=== PATIENT | female | born 1945 | race Caucasian/White ===

== ENCOUNTER 2016-05-12 14:25 | Emergency (ER) | payer OTHER, MEDICAID ==
[~2016-05-12] VITALS: Ht 167.6 cm; Wt 88.5 kg
[~2016-05-12 14:25] MED LIST: AMIT25TA9 PO; APIX5TAB PO; ASPI325T4 PO; BACL-63 PO; BEN10T PO; FURO40TA4 PO; GAB400C PO; HYDR500T13 PO; LEVO200T45 PO; MET25T PO; PANT40T PO; PAR20T PO; POTA10SO11 PO
[2016-05-12 15:42] VITALS: BP 148/75
[2016-05-12 17:15] LABS: Basophils # (auto) 0 uL; Basophils % (auto) 0.4 % (0.0-2.0); Eosinophils # (auto) 0.1 uL; Eosinophils % (auto) 1.2 % (0.0-7.0); Hematocrit 36.7 % (36.0-46.0); Hemoglobin 11.5 g/dL (12.2-16.2); Lymphocytes # (auto) 2.4 uL; Lymphocytes % (auto) 21.8 % (10.0-50.0); Mean Corpuscular Hemoglobin 27.1 pg (28.0-32.0); Mean Corpuscular Hgb Conc. 31.2 g/dL (32.0-36.0); Mean Corpuscular Volume 86.9 fL (80.0-100.0); Monocytes # (auto) 0.7 uL; Monocytes % (auto) 6.3 % (0.0-12.0); Neutrophils # (auto) 7.9 uL; Neutrophils % (auto) 70.3 % (37.0-80.0); Platelet Count (auto) 280 10^3/uL (140-450); Red Cell Distribution Width 15.8 % (11.6-16.0); SUSPECT VIEW TRANSMISSION; White Blood Cell 11.2 10^3/uL (4.4-10.8)
[2016-05-12 17:32] LABS: Albumin 3.1 g/dL (3.4-5.0); BUN/Creatinine Ratio 20.3; Calcium 8.5 mg/dL (8.5-10.1); Magnesium 1.9 mg/dL (1.6-2.6); Potassium 4.3 mmol/L (3.5-5.1)
[2016-05-12 17:35] LABS: Bilirubin, Total 0.3 mg/dL (0.2-1.0); Total Protein 6.5 g/dL (6.4-8.2)
== END 2016-05-12 22:24 | disposition left against medical advice (07) ==
LOC: ER 14:31
DX: R07.89 Other chest pain (principal); M54.9 Dorsalgia, unspecified; G89.29 Other chronic pain; Z88.0 Allergy status to penicillin; J44.9 Chronic obstructive pulmonary disease, unspecified; Z86.73 Personal history of transient ischemic attack (TIA), and cerebral infarction without residual deficits; E11.9 Type 2 diabetes mellitus without complications; I10 Essential (primary) hypertension; Z98.51 Tubal ligation status; Z90.49 Acquired absence of other specified parts of digestive tract; Z79.891 Long term (current) use of opiate analgesic; Z90.89 Acquired absence of other organs; Z53.21 Procedure and treatment not carried out due to patient leaving prior to being seen by health care provider
CPT/HCPCS: 36415; 71020; 80053; 83735; 84484; 85025; 93005

== ENCOUNTER 2016-05-16 09:44 | Emergency (ER) | payer OTHER, MEDICAID ==
[~2016-05-16] VITALS: Ht 167.6 cm; Wt 90.7 kg
[2016-05-16 10:02] VITALS: BP 173/86
== END 2016-05-16 13:14 | disposition home or self-care (01) ==
LOC: ER 09:44
DX: Z76.0 Encounter for issue of repeat prescription (principal); M54.5 Low back pain; G89.29 Other chronic pain; J44.9 Chronic obstructive pulmonary disease, unspecified; I10 Essential (primary) hypertension; F03.90 Unspecified dementia, unspecified severity, without behavioral disturbance, psychotic disturbance, mood disturbance, and anxiety; E11.9 Type 2 diabetes mellitus without complications; Z86.73 Personal history of transient ischemic attack (TIA), and cerebral infarction without residual deficits; Z86.711 Personal history of pulmonary embolism; Z88.0 Allergy status to penicillin; Z79.82 Long term (current) use of aspirin; Z79.01 Long term (current) use of anticoagulants

== ENCOUNTER 2018-09-02 13:49 | Emergency (ER) | payer OTHER, MEDICAID ==
[~2018-09-02] VITALS: Ht 165.1 cm; Wt 99.8 kg
[~2018-09-02 13:49] MED LIST changes: -LEVO200T45 PO; +LEVO200T7 PO
[2018-09-02 13:56] VITALS: BP 132/100
[2018-09-02 14:49] LABS: Albumin 3.3 g/dL (3.4-5.0); Anion Gap 6 (5-15); Blood Urea Nitrogen 10 mg/dL (7-18); Carbon Dioxide 29 mmol/L (21-32); Chloride 101 mmol/L (98-107); Glucose 84 mg/dL (74-106); Potassium 4.3 mmol/L (3.5-5.1); Sodium 136 mmol/L (136-145)
[2018-09-02 14:53] LABS: Alanine Aminotransferase 20 U/L (13-56); Alkaline Phosphatase 68 U/L (45-117); Aspartate Aminotransferase 11 U/L (15-37); BUN/Creatinine Ratio 12.5; Bilirubin, Total 0.4 mg/dL (0.2-1.0); GFR African American 91 mL/min; GFR Non-African American 75 mL/min; Total Protein 7.3 g/dL (6.4-8.2)
[2018-09-02 14:55] LABS: Basophils # (auto) 0 uL; Basophils % (auto) 0.3 % (0.0-2.0); Eosinophils # (auto) 0.1 uL; Eosinophils % (auto) 0.9 % (0.0-7.0); Hematocrit 39.1 % (36.0-46.0); Hemoglobin 12.3 g/dL (12.2-16.2); Lymphocytes # (auto) 2.6 uL; Lymphocytes % (auto) 18.2 % (10.0-50.0); Mean Corpuscular Hemoglobin 27.1 pg (28.0-32.0); Mean Corpuscular Hgb Conc. 31.4 g/dL (32.0-36.0); Mean Corpuscular Volume 86.5 fL (80.0-100.0); Monocytes # (auto) 0.9 uL; Monocytes % (auto) 6.6 % (0.0-12.0); Neutrophils # (auto) 10.4 uL; Platelet Count (auto) 301 10^3/uL (140-450); Red Blood Cells 4.52 10^6/uL (4.0-5.20); Red Cell Distribution Width 14.3 % (11.8-14.3)
== END 2018-09-02 20:18 | disposition left against medical advice (07) ==
LOC: ER 13:49 → EDBD 13:49 → ER 20:18
DX: E16.2 Hypoglycemia, unspecified (principal); Z53.21 Procedure and treatment not carried out due to patient leaving prior to being seen by health care provider
CPT/HCPCS: 36415; 80053; 84484; 85025

== ENCOUNTER 2019-03-21 10:59 | Inpatient (IN) | payer OTHER, MEDICAID ==
[~2019-03-21] VITALS: Ht 165.1 cm; Wt 102.9 kg
[2019-03-21 11:54] LABS: Basophils # (auto) 0 uL; Basophils % (auto) 0.3 % (0.0-2.0); Eosinophils # (auto) 0.3 uL; Eosinophils % (auto) 2.9 % (0.0-7.0); Hematocrit 35.4 % (36.0-46.0); Hemoglobin 11.3 g/dL (12.2-16.2); Lymphocytes # (auto) 2.2 uL; Lymphocytes % (auto) 18.8 % (10.0-50.0); Mean Corpuscular Hemoglobin 28.2 pg (28.0-32.0); Mean Corpuscular Hgb Conc. 31.8 g/dL (32.0-36.0); Mean Corpuscular Volume 88.6 fL (80.0-100.0); Monocytes # (auto) 0.7 uL; Monocytes % (auto) 5.9 % (0.0-12.0); Neutrophils # (auto) 8.6 uL; Neutrophils % (auto) 72.1 % (37.0-80.0); Platelet Count (auto) 277 10^3/uL (140-450); Red Cell Distribution Width 14.8 % (11.8-14.3); White Blood Cell 11.9 10^3/uL (4.4-10.8)
[2019-03-21 12:30] LABS: Alanine Aminotransferase 21 U/L (13-56); Albumin 3.2 g/dL (3.4-5.0); Anion Gap 4 (5-15); Blood Urea Nitrogen 7 mg/dL (7-18); Calcium 8.6 mg/dL (8.5-10.1); Carbon Dioxide 30 mmol/L (21-32); Chloride 104 mmol/L (98-107); Glucose 69 mg/dL (74-106); Magnesium 2.2 mg/dL (1.6-2.6); Potassium 4.3 mmol/L (3.5-5.1); Sodium 138 mmol/L (136-145)
[2019-03-21 12:35] LABS: Alkaline Phosphatase 66 U/L (45-117); Aspartate Aminotransferase 19 U/L (15-37); BUN/Creatinine Ratio 10.3; Bilirubin, Total 0.3 mg/dL (0.2-1.0); GFR African American 110 mL/min; GFR Non-African American 91 mL/min; Total Protein 6.7 g/dL (6.4-8.2)
[2019-03-21 13:39] LABS: Urine WBC None Seen /hpf (0 - 5)
[2019-03-21 13:48] LABS: Urine Bacteria NONE SEEN /hpf (None Seen); Urine Blood Negative /uL (Negative); Urine Specific Gravity 1.012 (1.001-1.035)
[2019-03-21] MEDS ORDERED: ONDANSETRON HCL 4 MG/2 ML VIAL IV PRN (15:15)
[2019-03-21] MEDS ORDERED: ACETAMINOPHEN 500 MG TAB PO PRN (15:15)
[2019-03-21] MEDS ORDERED: DEXTROSE (50%) 50ML SYRG IV PRN (15:15)
[2019-03-21] MEDS ORDERED: MORPHINE SULF INJ 2 MG/ML SYRINGE 1ML IV PRN (15:15)
[2019-03-21] MEDS ORDERED: hydrALAZINE HCL 20 MG/ML VL IV PRN (15:15)
[2019-03-21] MEDS ORDERED: NITROGLYCERIN 0.4 MG SL TAB SL PRN (15:15)
[2019-03-21 15:34] LABS: CRP High Sensitivity 0.65 mg/dL (< 0.3)
--- NOTE | 2019-03-21 16:05 | NUR ---
Patient arrived from ER SBAR received from MARILYN Tesfaye in ER. Patient is A & O x 4, with periods of forgetfullness, patient states "I have been having memory problems." Patient came in due to a fall and generalized weakness. Patient oriented to room, and to hospital as well as visiting hours. Patient states she does not have any family that will come and visit or call. She lives with [place] where she rents a room, who is her point of contact if she is to be discharged. Patient is comfortable at this time, no s/s of distress. POC discussed with patient, she agrees. Bed is in lowest, locked position, call light within reach, bed rails up x2, bed alarm on for safety precaution. Blood sugar 94, BP 153/78, HR 74, O2 96 (on 2L NC), RR 16, Pain 3 in lower back which she states is "tolerable." Patient is on Tele box 13, sinus rhythm at 64 BPM. Will continue to monitor Q1h and PRN.
--- NOTE | 2019-03-21 16:10 | NUR ---
Dr. Arenas at bedside. Dr. Arenas made aware of BP 153/78, HR 74 upon arrival, orders for Lisinopril received. Requesting Cardiolite Stress Test for patient tomorrow, NPO after midnight. Orders received, read back and verified. Will medicate per orders.
[2019-03-21] MEDS: InsuLIN REG 1unit/0.01ml Soln (100units/ml) SC SCH ×2 (16:27→22:58)
[2019-03-21] MEDS: ACCU-CHEK COMFORT CURVE STRIP VI SCH ×2 (16:27→22:47)
[2019-03-21] MEDS ORDERED: LISINOPRIL 10 MG TAB PO ONE (16:30)
--- NOTE | 2019-03-21 16:50 | NUR ---
hazardous materials waste technician at bedside.
[2019-03-21] MEDS ORDERED: QUET50TA PO (16:57)
[2019-03-21 17:00] VITALS: BP 153/78
[2019-03-21] MEDS ORDERED: ENAL2.5T PO (17:01)
[2019-03-21] MEDS ORDERED: INSLANTI SC (17:01)
[2019-03-21] MEDS ORDERED: TOLT2CAP7 PO (17:01)
[2019-03-21] MEDS ORDERED: SITA100T7 PO (17:01)
[2019-03-21] MEDS ORDERED: MAGN400T5 PO (17:01)
[2019-03-21] MEDS ORDERED: ATOR10TA52 PO (17:01)
[2019-03-21] MEDS: HYDROcodone-ACET 5/325MG TAB PO PRN (17:52)
--- NOTE | 2019-03-21 18:30 | NUR ---
POM medications taken to pharmacy. Band placed on patient, copy in chart.
--- NOTE | 2019-03-21 19:20 | NUR ---
Opening Shift Note Assumed care of patient, awake and alert. No S/S of distress/SOB. Patient reports /10 chronic back pain, but states that she can "wait for my [place]". Bed in lowest locked position, side rails up x2, call light within reach, bed alarm on. Instructed on POC and to call for assist PRN, will continue to monitor for changes Q1hr and PRN. Addendum: 03/22/19 at 0157 by GIO BRADEN RN RN ADDITION: Patient aware she will be NPO at midnight for Cardiolite stress test, verbalized understanding.
--- NOTE | 2019-03-21 20:00 | NUR ---
Regarding Depends Patient noted to be wearing Depends underwear. Patient made aware of hospital policy regarding such underwear, patient refusing to remove them. Patient educated on potential of skin breakdown due to wearing this type of underwear. Patient verbalized understanding, but continues to refuse stating that she "dribbles urine all the time. I get a rash if I don't wear this underwear, but I don't if I wear these." Patient allowed this RN to assess vaginal and rectal areas, no s/s of redness or skin breakdown noted. Patient alert and oriented. No s/s of distress. Will continue care. Charge nurse aware.
[2019-03-21 22:00] VITALS: BP 152/80
--- NOTE | 2019-03-21 22:00 | NUR ---
Hospitalist Paged Patient requesting continuation home mediations Baclofen, Magnesium, and Seroquel. Patient states that these medications "help [her] sleep." call center operations manager hospitalist paged, awaiting call back at this time.
--- NOTE | 2019-03-21 22:04 | NUR ---
Hospitalist Returned Page car deliverer hospitalist Compa D eLeon MD returned page at this time, new orders received to continue the home medications noted in the previous note as taken at home and ok to give a one time dose of Magnesium Oxide 400 mg PO. All orders red back and verified, will implement as ordered and continue care.
[2019-03-21] MEDS ORDERED: BACLOFEN 10 MG TAB PO ONE (22:15)
[2019-03-21] MEDS ORDERED: MAGNESIUM OXIDE 400 MG TAB PO ONE (22:15)
--- NOTE | 2019-03-21 22:30 | NUR ---
IV insertion Second IV required for ordered Cardiolite stress test in AM. IV access obtained, via clean sterile technique by inserting 20 gauge catheter to patient's right hand after two attempts. IV secured properly. No trauma to site. Patient tolerated well. 20 gauge to patients left AC noted to be patent, clean, dry, and intact. Will continue to monitor.
[2019-03-21] MEDS: ATORVASTATIN 20 MG TAB PO SCH (22:45)
[2019-03-21] MEDS: METOPROLOL TARTRATE 25 MG TAB PO SCH (22:46)
[2019-03-21] MEDS: GABAPENTIN 400 MG CAP PO SCH (22:47)
[2019-03-21] MEDS: DOCUSATE SOD 100 MG CAP PO SCH (22:47)
--- NOTE | 2019-03-22 04:45 | NUR ---
EKG EKG done as ordered, machine reading normal sinus rhythm. Patient tolerated well. Copy placed in hard chart. Will continue care.
[2019-03-22 05:00] VITALS: BP 159/89
[2019-03-22] MEDS: BACLOFEN 10 MG TAB PO SCH ×3 (06:06→21:58)
[2019-03-22] MEDS: GABAPENTIN 400 MG CAP PO SCH ×3 (06:06→21:59)
[2019-03-22] MEDS: ACCU-CHEK COMFORT CURVE STRIP VI SCH ×4 (06:06→21:20)
--- NOTE | 2019-03-22 06:15 | NUR ---
Hypertension Patient's blood pressure 159/89 with 73 heart rate. Patient reporting 10/10 back pain, reports that the pain "came on suddenly". Will medicate for pain as ordered and continue to monitor.
[2019-03-22] MEDS: InsuLIN REG 1unit/0.01ml Soln (100units/ml) SC SCH ×4 (06:18→22:00)
[2019-03-22] MEDS: HYDROcodone-ACET 5/325MG TAB PO PRN ×2 (06:20→17:45)
[2019-03-22 06:25] LABS: Basophils # (auto) 0 uL; Basophils % (auto) 0.3 % (0.0-2.0); Eosinophils # (auto) 0.4 uL; Eosinophils % (auto) 3.2 % (0.0-7.0); Hemoglobin 11.6 g/dL (12.2-16.2); Lymphocytes # (auto) 2.3 uL; Lymphocytes % (auto) 19.1 % (10.0-50.0); Mean Corpuscular Hemoglobin 28.4 pg (28.0-32.0); Mean Corpuscular Hgb Conc. 32.1 g/dL (32.0-36.0); Mean Corpuscular Volume 88.5 fL (80.0-100.0); Monocytes # (auto) 0.8 uL; Monocytes % (auto) 6.7 % (0.0-12.0); Neutrophils # (auto) 8.4 uL; Neutrophils % (auto) 70.7 % (37.0-80.0); Platelet Count (auto) 282 10^3/uL (140-450); Red Blood Cells 4.07 10^6/uL (4.0-5.20); Red Cell Distribution Width 14.8 % (11.8-14.3); White Blood Cell 11.9 10^3/uL (4.4-10.8)
[2019-03-22 06:41] LABS: Potassium 4.2 mmol/L (3.5-5.1)
[2019-03-22 06:45] LABS: BUN/Creatinine Ratio 13.9; Calcium 8.7 mg/dL (8.5-10.1)
[2019-03-22 06:49] LABS: INR 0.94 (0.9-1.15); Partial Thromboplastin Time 35.4 sec (23.64-32.05)
--- NOTE | 2019-03-22 07:20 | NUR ---
Closing Note Patient lying in bed, awake and alert. No s/s of distress. Bed in lowest locked position, side rails up x2, call light within reach, bed alarm on. Blood pressure rechecked after [place] administration, 154/93 with a 74 heart rate. Dayshift RN made aware and care endorsed.
[2019-03-22] MEDS ORDERED: ADENOSINE 90 MG in GIVE UN-DILUTED 0 ML IV STA (08:13)
[2019-03-22 09:00] VITALS: BP 162/76
[2019-03-22 09:42] VITALS: BP 146/73
--- NOTE | 2019-03-22 10:25 | NUR ---
RETURNED FROM STRESS TEST
[2019-03-22] MEDS: DOCUSATE SOD 100 MG CAP PO SCH ×2 (10:37→22:00)
[2019-03-22] MEDS: METOPROLOL TARTRATE 25 MG TAB PO SCH ×2 (10:38→21:59)
[2019-03-22] MEDS: FAMOTIDINE 20 MG TAB PO SCH (10:39)
[2019-03-22] MEDS: MAGNESIUM OXIDE 400 MG TAB PO SCH (10:39)
[2019-03-22] MEDS: LISINOPRIL 10 MG TAB PO SCH (10:40)
[2019-03-22] MEDS: INSULIN LANTUS (GLARGINE) 1 /0.01ml (100units/ml) SC SCH (10:40)
[2019-03-22] MEDS: ASPirin-EC 81 mg tab PO SCH (10:40)
--- NOTE | 2019-03-22 11:00 | NUR ---
DR. POP IN
[2019-03-22 13:00] VITALS: BP 145/81
--- NOTE | 2019-03-22 13:15 | NUR ---
ATE LUNCH. C/O SUDDEN ONSET RT LEG PAIN, SHARP AND SHOOTING UP TO HIP. AGREED TO AMBULATE
--- NOTE | 2019-03-22 13:40 | NUR ---
AMB WITH WALKER AROUND HALF OF UNIT. STATES SHE DOESNT WALK MUCH BECAUSE OF HER CHRONIC PAIN. AT END SHE SAID HER BACK AND HIPS HURT BUT WAS GLAD SHE WALKED. ENCOURAGED TO INCREASE ACTIVITY. SPO2 AFTER ACTIVITY 92%
[2019-03-22] MEDS ORDERED: BACLOFEN 10 MG TAB ONE (14:09)
--- NOTE | 2019-03-22 14:17 | NUR ---
ORDER RECEIVED PER DR POP FOR ROOM AIR ABG. PT ON ROOM AIR FOR AN HOUR, SPO2 REMAINS 89-90%. RN WALKED PATIENT AND PT SPO2 90%. DR POP AWARE. NEW ORDERS RECEIVED.
--- NOTE | 2019-03-22 16:28 | NUR ---
Discharge planning per consult, patient has orders for home health eval. [facility], obtained auth from [id number]. Addendum: 03/26/19 at 1506 by ELISE PAINTER Auth obtained from [facility] for [id number]. Spoke to Elise at [employer] and was advised that the 02 was delivered to patient's bedside at 7:33pm on 03.25.19.
[2019-03-22 17:00] VITALS: BP 148/71
--- NOTE | 2019-03-22 17:44 | NUR ---
STATES IS "PRETTY MISERABLE" 8/10 PAIN ALL OVER ESPECIALLY HIPS AND LEGS. MED WITH CARMEN
--- NOTE | 2019-03-22 19:30 | NUR ---
Opening Shift Note Assumed care of patient, awake and alert. No S/S of distress/SOB. Instructed on POC and to call for assist PRN, will continue to monitor for changes Q1hr and PRN.
--- NOTE | 2019-03-22 21:00 | NUR ---
Patient is wearing incontinence briefs and is refusing to remove them. Attempted to educate patient regarding risks of skin breakdown. Patient still refused to take them off. Will continue to monitor.
[2019-03-22] MEDS: ATORVASTATIN 20 MG TAB PO SCH (21:58)
[2019-03-22] MEDS: QUEtiapine FUMARATE 25 MG TAB PO SCH (21:59)
[2019-03-22 22:01] VITALS: BP 138/82
[2019-03-23 05:03] VITALS: BP 148/81
[2019-03-23] MEDS: HYDROcodone-ACET 5/325MG TAB PO PRN ×3 (05:16→20:38)
[2019-03-23] MEDS: ACCU-CHEK COMFORT CURVE STRIP VI SCH ×4 (06:21→22:54)
[2019-03-23] MEDS: GABAPENTIN 400 MG CAP PO SCH ×3 (06:22→22:51)
[2019-03-23] MEDS: BACLOFEN 10 MG TAB PO SCH ×3 (06:22→22:49)
[2019-03-23] MEDS: InsuLIN REG 1unit/0.01ml Soln (100units/ml) SC SCH ×4 (06:41→23:06)
[2019-03-23 07:00] LABS: Basophils # (auto) 0 uL; Basophils % (auto) 0.2 % (0.0-2.0); Eosinophils # (auto) 0.3 uL; Eosinophils % (auto) 2.7 % (0.0-7.0); Hematocrit 34.4 % (36.0-46.0); Hemoglobin 11.2 g/dL (12.2-16.2); Lymphocytes # (auto) 2.6 uL; Lymphocytes % (auto) 21.9 % (10.0-50.0); Mean Corpuscular Hgb Conc. 32.7 g/dL (32.0-36.0); Mean Corpuscular Volume 88.9 fL (80.0-100.0); Monocytes % (auto) 8.2 % (0.0-12.0); Neutrophils # (auto) 8.1 uL; Nucleated Red Blood Cells % 0.1 %; Platelet Count (auto) 262 10^3/uL (140-450); Red Blood Cells 3.87 10^6/uL (4.0-5.20); Red Cell Distribution Width 14.6 % (11.8-14.3)
[2019-03-23 07:01] LABS: BUN/Creatinine Ratio 19.1; Magnesium 2.1 mg/dL (1.6-2.6); Potassium 4.3 mmol/L (3.5-5.1)
--- NOTE | 2019-03-23 08:05 | NUR ---
OPENING SHIFT NOTE. ASSUMED CARE OF PT. PATIENT AWAKE AND ALERT. NO SOB OR SIGNS OF DISTRESS NOTED. INSTRUCTED ON POC AND TO CALL FOR HELP PRN. BED IN LOWEST POSITION WITH SIDE RAILS UP X2. WILL CONTINUE TO MONITOR.
[2019-03-23 09:00] VITALS: BP 133/59
[2019-03-23] MEDS: ASPirin-EC 81 mg tab PO SCH (10:00)
[2019-03-23] MEDS: DOCUSATE SOD 100 MG CAP PO SCH ×2 (10:01→22:48)
[2019-03-23] MEDS: METOPROLOL TARTRATE 25 MG TAB PO SCH ×2 (10:01→22:50)
[2019-03-23] MEDS: MAGNESIUM OXIDE 400 MG TAB PO SCH (10:01)
[2019-03-23] MEDS: FAMOTIDINE 20 MG TAB PO SCH (10:01)
[2019-03-23] MEDS: LISINOPRIL 10 MG TAB PO SCH (10:02)
[2019-03-23] MEDS: INSULIN LANTUS (GLARGINE) 1 /0.01ml (100units/ml) SC SCH (10:13)
[2019-03-23 13:00] VITALS: BP 132/72
--- NOTE | 2019-03-23 14:30 | NUR ---
O2 SAT AFTER AMBULATING WITH PT WAS 90-92%. RT DRAWING ABG SAMPLE.
--- NOTE | 2019-03-23 15:00 | NUR ---
ABG RESULTED. SHOWS PO2 AT [phone]. CALLED DR POP TO INFORM OF RESULT. AWAITING CALLBACK.
[2019-03-23 17:00] VITALS: BP 159/71
[2019-03-23 22:00] VITALS: BP 148/60
[2019-03-23] MEDS: ATORVASTATIN 20 MG TAB PO SCH (22:48)
[2019-03-23] MEDS: QUEtiapine FUMARATE 25 MG TAB PO SCH (22:49)
[2019-03-24 05:11] VITALS: BP 151/67
[2019-03-24] MEDS: GABAPENTIN 400 MG CAP PO SCH ×3 (06:12→22:18)
[2019-03-24] MEDS: BACLOFEN 10 MG TAB PO SCH ×3 (06:12→22:18)
[2019-03-24] MEDS: ACCU-CHEK COMFORT CURVE STRIP VI SCH ×3 (06:14→17:25)
[2019-03-24] MEDS: InsuLIN REG 1unit/0.01ml Soln (100units/ml) SC SCH ×3 (06:15→17:25)
[2019-03-24 07:32] LABS: Basophils # (auto) 0 uL; Basophils % (auto) 0.4 % (0.0-2.0); Eosinophils # (auto) 0.3 uL; Eosinophils % (auto) 2.4 % (0.0-7.0); Hematocrit 35.2 % (36.0-46.0); Hemoglobin 11.5 g/dL (12.2-16.2); Lymphocytes # (auto) 2.8 uL; Lymphocytes % (auto) 23.7 % (10.0-50.0); Mean Corpuscular Hemoglobin 28.8 pg (28.0-32.0); Mean Corpuscular Hgb Conc. 32.6 g/dL (32.0-36.0); Mean Corpuscular Volume 88.5 fL (80.0-100.0); Monocytes # (auto) 0.9 uL; Neutrophils # (auto) 7.7 uL; Neutrophils % (auto) 65.5 % (37.0-80.0); Platelet Count (auto) 278 10^3/uL (140-450); Red Blood Cells 3.98 10^6/uL (4.0-5.20); Red Cell Distribution Width 14.3 % (11.8-14.3); White Blood Cell 11.7 10^3/uL (4.4-10.8)
[2019-03-24 08:00] VITALS: BP 151/67
--- NOTE | 2019-03-24 08:00 | NUR ---
ASSESSMENT NOTE PT IS ALERT ORIENTED X4, RESTING IN BED COMFORTABLY, NO DISTRESS NOTED, VERY LARGE SOFT ABDOMEN NOTED, OXYGEN 2 L NC, ABLE TO SELF REPOSITION AND VERBALIS HER DEMANDS, PT IS HARD OF HEARING USE HEARING AIDE, PAIN 0/10, CALL LIGHT WITHIN REACH, CONTINUE ON FALL RISK PRECAUTIONS.
[2019-03-24 08:30] VITALS: BP 153/65
[2019-03-24] MEDS: MAGNESIUM OXIDE 400 MG TAB PO SCH (09:29)
[2019-03-24] MEDS: LISINOPRIL 10 MG TAB PO SCH (09:29)
[2019-03-24] MEDS: METOPROLOL TARTRATE 25 MG TAB PO SCH ×2 (09:29→22:20)
[2019-03-24] MEDS: ASPirin-EC 81 mg tab PO SCH (09:30)
[2019-03-24] MEDS: FAMOTIDINE 20 MG TAB PO SCH (09:30)
[2019-03-24] MEDS: DOCUSATE SOD 100 MG CAP PO SCH ×2 (09:31→22:18)
[2019-03-24] MEDS: HYDROcodone-ACET 5/325MG TAB PO PRN ×2 (09:36→18:14)
[2019-03-24] MEDS: INSULIN LANTUS (GLARGINE) 1 /0.01ml (100units/ml) SC SCH (09:37)
--- NOTE | 2019-03-24 11:00 | NUR ---
DR POP IS HERE FOLLOWING UP ON PT WITH NEW ORDERS
[2019-03-24] MEDS: MORPHINE SULF INJ 2 MG/ML SYRINGE 1ML IV PRN (11:27)
--- NOTE | 2019-03-24 11:30 | NUR ---
PT IS SITTING ON CHAIR AT BED SIDE
[2019-03-24 12:39] VITALS: BP 127/76
--- NOTE | 2019-03-24 14:21 | NUR ---
Nutrition Assessment Notes please see attached link for complete assessment Est. Needs ABW 80 [id number] kcal (20-23 kcal/kgBW), 80-88 gms pro (1.0-1.1 gms/kgBW). Will continue to monitor pertinent labs and reassess nutrient need prn Addendum: 03/24/19 at [address] Amended: Links added.
[2019-03-24 17:00] VITALS: BP 131/84
--- NOTE | 2019-03-24 18:30 | NUR ---
PT IS SITTING UP EATING DINNER, NO DISTRESS NOTED, CONTINUE MONITORING
--- NOTE | 2019-03-24 19:38 | NUR ---
RECEIVED PT FROM DAY RN POC REVIEWED
[2019-03-24 22:00] VITALS: BP 141/57
[2019-03-24] MEDS: QUEtiapine FUMARATE 25 MG TAB PO SCH (22:17)
[2019-03-24] MEDS: ATORVASTATIN 20 MG TAB PO SCH (22:18)
[2019-03-25] MEDS: HYDROcodone-ACET 5/325MG TAB PO PRN ×3 (00:03→20:32)
[2019-03-25] MEDS: ACCU-CHEK COMFORT CURVE STRIP VI SCH ×5 (00:26→21:42)
[2019-03-25] MEDS: InsuLIN REG 1unit/0.01ml Soln (100units/ml) SC SCH ×5 (00:26→21:42)
[2019-03-25] MEDS: MORPHINE SULF INJ 2 MG/ML SYRINGE 1ML IV PRN (01:25)
[2019-03-25 04:55] VITALS: BP 143/57
[2019-03-25] MEDS: GABAPENTIN 400 MG CAP PO SCH ×3 (05:10→21:30)
[2019-03-25] MEDS: BACLOFEN 10 MG TAB PO SCH ×3 (05:13→21:33)
[2019-03-25 08:00] VITALS: BP 157/81
--- NOTE | 2019-03-25 08:00 | NUR ---
ASSESSMENT NOTE PT IS ALERT ORIENTED X4, RESTING IN LOW RODRÍGUEZ POSITION, SLEEPING, NOTICE THAT PT IS APNEIC, DUE TO THE WAY LEANING TO HER SIDE, SHOOK PT UP, WAKE AFTER 8 SECONDS, NO SHORTNESS OF BREATH NOTED, PAIN 0/10 AT THIS TIME, CALL LIGHT WITHIN REACH
[2019-03-25 09:00] VITALS: BP 114/57
[2019-03-25] MEDS: FAMOTIDINE 20 MG TAB PO SCH (09:29)
[2019-03-25] MEDS: MAGNESIUM OXIDE 400 MG TAB PO SCH (09:29)
[2019-03-25] MEDS: ASPirin-EC 81 mg tab PO SCH (09:29)
[2019-03-25] MEDS: LISINOPRIL 10 MG TAB PO SCH (09:30)
[2019-03-25] MEDS: INSULIN LANTUS (GLARGINE) 1 /0.01ml (100units/ml) SC SCH (09:31)
[2019-03-25] MEDS: METOPROLOL TARTRATE 25 MG TAB PO SCH ×2 (10:00→21:34)
[2019-03-25] MEDS: DOCUSATE SOD 100 MG CAP PO SCH ×2 (10:00→21:31)
--- NOTE | 2019-03-25 10:35 | NUR ---
DR POP IS HERE FOLLOWING UP ON PT
--- NOTE | 2019-03-25 10:36 | NUR ---
DR POP MADE AWARE THAT POSSIBLY HAVE A SLEEP APNEA
[2019-03-25 13:00] VITALS: BP 125/79
--- NOTE | 2019-03-25 15:37 | NUR ---
assessment Patient is a 73 year old female who is alert and oriented. Patients cognitive abilities are intact. Prior to admission patient lived home with a friend Joana Shultz [phone] and functioned with assistance. Per patient she will return home to her prior living arrangements post discharge and family will transport her home. Patient informed me she has a SS caregiver. Patient informed me she has a fww for home use. Patient feels safe returning home on discharge. Patient has an order for home 02 and home health that has been satisfied by [facility]. I informed patient she has a right to speak to a social psychologist regarding all care. I informed patient she has a right to participate in any and all discharge planning. Patient does not have a POA and advanced directive. I have offered patient information on POA and advanced directives. I informed the patient the advantages and benefits of having an Advanced Directive. Patient verbalized understanding and agreed to discharge plan. Addendum: 03/25/19 at 1540 by Michelle THOMAS Amended: Links added.
[2019-03-25 17:00] VITALS: BP 161/95
--- NOTE | 2019-03-25 18:40 | NUR ---
PT CONTINUE STABLE, VERBALIZ UNDERSTANDING FOR LEFT CATH CATH TOMORROW , NO DISTRESS NOTED, CONTINUE CARE
[2019-03-25] MEDS: ATORVASTATIN 20 MG TAB PO SCH (21:31)
[2019-03-25] MEDS: QUEtiapine FUMARATE 25 MG TAB PO SCH (21:33)
[2019-03-25 22:00] VITALS: BP 140/72
[2019-03-26 05:00] VITALS: BP 108/62
[2019-03-26] MEDS: InsuLIN REG 1unit/0.01ml Soln (100units/ml) SC SCH ×4 (05:41→22:02)
[2019-03-26] MEDS: GABAPENTIN 400 MG CAP PO SCH ×3 (05:42→21:45)
[2019-03-26] MEDS: ACCU-CHEK COMFORT CURVE STRIP VI SCH ×4 (05:42→22:02)
[2019-03-26] MEDS: BACLOFEN 10 MG TAB PO SCH ×3 (05:42→21:46)
[2019-03-26] MEDS: HYDROcodone-ACET 5/325MG TAB PO PRN ×2 (05:43→17:27)
[2019-03-26 07:25] LABS: Basophils # (auto) 0 uL; Basophils % (auto) 0.4 % (0.0-2.0); Eosinophils # (auto) 0.2 uL; Eosinophils % (auto) 2.1 % (0.0-7.0); Hematocrit 37.3 % (36.0-46.0); Lymphocytes # (auto) 2.5 uL; Lymphocytes % (auto) 22.1 % (10.0-50.0); Mean Corpuscular Hemoglobin 28.7 pg (28.0-32.0); Mean Corpuscular Hgb Conc. 32.2 g/dL (32.0-36.0); Monocytes # (auto) 0.8 uL; Monocytes % (auto) 6.7 % (0.0-12.0); Neutrophils # (auto) 7.9 uL; Neutrophils % (auto) 68.7 % (37.0-80.0); Platelet Count (auto) 277 10^3/uL (140-450); Red Blood Cells 4.18 10^6/uL (4.0-5.20); Red Cell Distribution Width 14.8 % (11.8-14.3); White Blood Cell 11.5 10^3/uL (4.4-10.8)
[2019-03-26 07:29] LABS: INR 0.96 (0.9-1.15)
[2019-03-26 07:35] LABS: Potassium 4.3 mmol/L (3.5-5.1)
[2019-03-26 07:40] LABS: BUN/Creatinine Ratio 15.3; Calcium 9.2 mg/dL (8.5-10.1)
--- NOTE | 2019-03-26 07:45 | NUR ---
FUNERAL HOME GENERAL MANAGER CALLED AND READY FOR PATIENT.
--- NOTE | 2019-03-26 07:50 | NUR ---
PATIENT ROUNDS PATIENT LYING IN BED, NO DISTRESS NOTED, RR EQUAL AND NONLABORED. BED IN LOWEST POSITION ,SIDE RAILS UP X2, CALL LIGHT WITHIN REACH WILL CONTINUE TO MONITOR. PATIENT NPO FOR PROCEDURE.
[2019-03-26 08:00] VITALS: BP 108/46
--- NOTE | 2019-03-26 08:05 | NUR ---
PATIENT OFF UNIT FOR PROCEDURE
[2019-03-26] MEDS ORDERED: LIDOCAINE 2%HCL (LOCAL ANESTH.) INJ 20ML MDV ONE (08:27)
[2019-03-26] MEDS ORDERED: IOHEXOL 350 MG/ML 100ML IJ ONE (08:27)
[2019-03-26] MEDS ORDERED: ANGIOMAX 250 MG VIAL IV ONE ×2 (09:50→10:49)
[2019-03-26] MEDS ORDERED: SODIUM CHL 0.9% 50 ML ONE ×2 (09:51→10:49)
[2019-03-26] MEDS ORDERED: fentaNYL CITRATE 100 MCG/2 ML VL ONE (09:51)
[2019-03-26] MEDS ORDERED: MIDAZOLAM HCL 1MG/1ML-2 ML VIAL ONE (09:51)
--- NOTE | 2019-03-26 09:51 | NUR ---
PT IN PROCEDURE, NPO FOR BREAKFAST
[2019-03-26] MEDS ORDERED: HEPARIN SODIUM (PORCINE) 5000 UNITS/ML 1ML VIAL ONE (09:56)
[2019-03-26] MEDS ORDERED: VERAPAMIL 2.5MG/ML INJ 2ML VIAL IV ONE (09:56)
[2019-03-26] MEDS: INSULIN LANTUS (GLARGINE) 1 /0.01ml (100units/ml) SC SCH (10:00)
[2019-03-26] MEDS: METOPROLOL TARTRATE 25 MG TAB PO SCH ×2 (10:00→21:48)
[2019-03-26] MEDS: MAGNESIUM OXIDE 400 MG TAB PO SCH (10:00)
[2019-03-26] MEDS: ASPirin-EC 81 mg tab PO SCH (10:00)
[2019-03-26] MEDS: FAMOTIDINE 20 MG TAB PO SCH (10:00)
[2019-03-26] MEDS: LISINOPRIL 10 MG TAB PO SCH (10:00)
[2019-03-26] MEDS: DOCUSATE SOD 100 MG CAP PO SCH ×2 (10:00→21:48)
[2019-03-26] MEDS ORDERED: PHENYLEPHRINE HCL 10 MG/ML VL ONE (10:11)
[2019-03-26] MEDS ORDERED: CLOPIDOGREL 300 MG TAB ONE (10:52)
[2019-03-26] MEDS ORDERED: ASPirin 81 mg TAB ONE (10:53)
[2019-03-26 13:00] VITALS: BP 147/62
--- NOTE | 2019-03-26 13:15 | NUR ---
PATIENT BACK ON UNIT PATIENT LYING IN BED, NO DISTRESS NOTED, PATIENT PLACED ON 2L O2, VASC BAND TO RIGHT WRIST-2CC AIR REMOVED, SITE BENIGN. WILL CONTINUE TO MONITOR AND INITIATE POC. BED IN LOWEST POSITION, SIDE RAILS UP X2, CALL LIGHT WITHIN REACH.
--- NOTE | 2019-03-26 14:21 | NUR ---
VASCBAND VASCBAND REMOVED-DRESSING PLACED, SITE BENIGN, NO BLEEDING. PATIENT EDUCATED ON MONITORING FOR BLEEDING.
[2019-03-26 17:00] VITALS: BP 145/79
--- NOTE | 2019-03-26 19:25 | NUR ---
Opening Shift Note Assumed care of patient, awake and alert. No S/S of distress/SOB or pain. Family at the bedside. Instructed on POC and to call for assist PRN, will continue to monitor for changes Q1hr and PRN.
[2019-03-26] MEDS: QUEtiapine FUMARATE 25 MG TAB PO SCH (21:46)
[2019-03-26] MEDS: ATORVASTATIN 20 MG TAB PO SCH (21:46)
[2019-03-26] MEDS: MORPHINE SULF INJ 2 MG/ML SYRINGE 1ML IV PRN (21:48)
[2019-03-26 22:50] VITALS: BP 156/72
[2019-03-27 05:31] VITALS: BP 120/60
[2019-03-27] MEDS: GABAPENTIN 400 MG CAP PO SCH ×3 (05:55→22:27)
[2019-03-27] MEDS: BACLOFEN 10 MG TAB PO SCH ×3 (05:55→22:27)
[2019-03-27] MEDS: ACCU-CHEK COMFORT CURVE STRIP VI SCH ×4 (06:36→22:28)
[2019-03-27] MEDS: InsuLIN REG 1unit/0.01ml Soln (100units/ml) SC SCH ×4 (06:40→22:28)
[2019-03-27 07:19] LABS: Basophils # (auto) 0 uL; Basophils % (auto) 0.3 % (0.0-2.0); Eosinophils # (auto) 0.2 uL; Eosinophils % (auto) 1.3 % (0.0-7.0); Hematocrit 34.7 % (36.0-46.0); Hemoglobin 11.2 g/dL (12.2-16.2); Lymphocytes # (auto) 2.3 uL; Mean Corpuscular Hemoglobin 28.3 pg (28.0-32.0); Mean Corpuscular Hgb Conc. 32.2 g/dL (32.0-36.0); Mean Corpuscular Volume 87.9 fL (80.0-100.0); Monocytes % (auto) 7.6 % (0.0-12.0); Neutrophils # (auto) 9.3 uL; Neutrophils % (auto) 72.8 % (37.0-80.0); Platelet Count (auto) 275 10^3/uL (140-450); Red Blood Cells 3.95 10^6/uL (4.0-5.20); Red Cell Distribution Width 14.9 % (11.8-14.3); White Blood Cell 12.8 10^3/uL (4.4-10.8)
[2019-03-27 07:38] LABS: Calcium 8.7 mg/dL (8.5-10.1); Magnesium 2.3 mg/dL (1.6-2.6); Potassium 4.9 mmol/L (3.5-5.1)
[2019-03-27 07:40] LABS: BUN/Creatinine Ratio 16.8
--- NOTE | 2019-03-27 07:41 | NUR ---
OPENING NOTE Assumed care of patient from [facility] RN, Jenny. Patient resting in bed with eyes closed, even rise and fall of chest noted. No S/S of distress/SOB or pain. Nasal cannula in place, connected to 2L O2. Bed in lowest, locked position with side rails up x2. Fall precautions in place and call light within reach. Will continue to monitor for changes Q1hr and PRN.
[2019-03-27 09:45] VITALS: BP 89/45
--- NOTE | 2019-03-27 09:45 | NUR ---
IV CHANGE Patient refused IV change. Educated patient that IV's should be changed every 3 days, continues to refuse. IV flushes well, no S/S of pain/redness or infiltration.
[2019-03-27] MEDS: DOCUSATE SOD 100 MG CAP PO SCH ×2 (10:40→22:27)
[2019-03-27] MEDS: ASPirin-EC 81 mg tab PO SCH (10:40)
[2019-03-27] MEDS: LISINOPRIL 10 MG TAB PO SCH (10:41)
[2019-03-27] MEDS: METOPROLOL TARTRATE 25 MG TAB PO SCH ×2 (10:41→22:00)
[2019-03-27] MEDS: CLOPIDOGREL BISULFATE 75 MG TAB PO SCH (10:42)
[2019-03-27] MEDS: FAMOTIDINE 20 MG TAB PO SCH (10:43)
[2019-03-27] MEDS: INSULIN LANTUS (GLARGINE) 1 /0.01ml (100units/ml) SC SCH (10:44)
[2019-03-27] MEDS: MAGNESIUM OXIDE 400 MG TAB PO SCH (10:44)
[2019-03-27 13:00] VITALS: BP 125/74
--- NOTE | 2019-03-27 15:03 | NUR ---
Pt was able to complete sit to stand x 10 reps using FWW for balance and stability with modA. Pt did experience tremors during her sit to stand exercises and noted for bilat knees to collapse causing for patient to lose control to bilat LE's and causing for her to sit down at the edge of the bed. Addendum: 03/27/19 at 1505 by Katty Horner PT Amended: Links added.
[2019-03-27] MEDS: MORPHINE SULF INJ 2 MG/ML SYRINGE 1ML IV PRN (15:05)
[2019-03-27] MEDS: HYDROcodone-ACET 5/325MG TAB PO PRN (15:06)
--- NOTE | 2019-03-27 15:19 | NUR ---
Nutrition Follow-up Notes Wt.: 106.6 kg as of yesterday Pt's on oxygen via nasal cannula, asleep, no immediate family member at bedside during rounds this morning. Pt's s/p LHC yesterday, no signs of distress noted earlier, currently on 2 gms Na diet with adequate PO intake aeb 80% ave. consumed meals (x6) in last 2.5 days. Noted pt's for active Neurology consult. Est. Needs ABW 80 [id number] kcal (20-23 kcal/kgBW), 80-88 gms pro (1.0-1.1 gms/kgBW). Will continue to monitor pertinent labs and reassess nutrient need prn Labs: Gluc 228 H, Na 128 L, Cl 94 L, BUN 20 H, Cr 1.19 H, HbA1c 7.4 H, Alb 3.2 L. Skin: Izaiah scale 16, mod risk, skin intact per sample washer. GI: Pt had 1 BM this morning per sample washer. PES: Altered nutrition related lab values r/t current/chronic medical condition aeb hyperglycemia, elev A1C mild hypoalb Obesity r/t food intake more than body requirement aeb 188% IBW, BMI 39.1 kg/m2 and increased body adiposity Will continue to monitor PO intake, skin status, pertinent labs and weight trend. F/u in 3 to 5 days. Rec.: 1.) Consider Consistent Standard Carb: 60 gms/meal,Cardiac: 2 gms Na, Low Chol, Low Fat diet. 2.) If Albumin continues trending down witb improved renal labs, consider Prostat 1 pkt BID. 3.) Continue close supervision during meals. 4.) Refer pt to CDE/RD for further nutrition education and weight monitoring upon discharge. 5.) Continue current plan of care.
[2019-03-27 17:16] VITALS: BP 133/57
--- NOTE | 2019-03-27 19:15 | NUR ---
Opening Shift Note Assumed care of patient, awake and alert. No S/S of distress/SOB or pain. Safety measures in place bed in lowest position, side railsx2 up, and call light within reach. Instructed on POC and to call for assist PRN, will continue to monitor for changes Q1hr and PRN.
[2019-03-27 22:00] VITALS: BP 128/51
--- NOTE | 2019-03-27 22:00 | NUR ---
IV Change Educated patient that IV's should be changed every 3 days, patient stated "It still works". Patient refused IV change. IV flushes well, no S/S of pain/redness or infiltration.
[2019-03-27] MEDS: QUEtiapine FUMARATE 25 MG TAB PO SCH (22:27)
[2019-03-27] MEDS: ATORVASTATIN 20 MG TAB PO SCH (22:27)
[2019-03-28 05:57] VITALS: BP 111/43
[2019-03-28 06:01] LABS: Basophils # (auto) 0.1 uL; Basophils % (auto) 0.5 % (0.0-2.0); Eosinophils # (auto) 0.3 uL; Hematocrit 33.8 % (36.0-46.0); Hemoglobin 10.7 g/dL (12.2-16.2); Lymphocytes # (auto) 3.9 uL; Mean Corpuscular Hemoglobin 28.6 pg (28.0-32.0); Mean Corpuscular Hgb Conc. 31.8 g/dL (32.0-36.0); Mean Corpuscular Volume 89.9 fL (80.0-100.0); Monocytes # (auto) 1.2 uL; Monocytes % (auto) 8.4 % (0.0-12.0); Neutrophils # (auto) 8.4 uL; Neutrophils % (auto) 61.1 % (37.0-80.0); Nucleated Red Blood Cells % 0.1 %; Platelet Count (auto) 249 10^3/uL (140-450); Red Blood Cells 3.75 10^6/uL (4.0-5.20); Red Cell Distribution Width 15.1 % (11.8-14.3); White Blood Cell 13.8 10^3/uL (4.4-10.8)
[2019-03-28 06:19] LABS: Calcium 8.6 mg/dL (8.5-10.1); Potassium 4.8 mmol/L (3.5-5.1)
[2019-03-28 06:24] LABS: BUN/Creatinine Ratio 17.9
[2019-03-28] MEDS: GABAPENTIN 400 MG CAP PO SCH ×3 (06:28→22:32)
[2019-03-28] MEDS: BACLOFEN 10 MG TAB PO SCH ×4 (06:28→22:33)
[2019-03-28] MEDS: ACCU-CHEK COMFORT CURVE STRIP VI SCH ×4 (06:36→22:30)
[2019-03-28] MEDS: InsuLIN REG 1unit/0.01ml Soln (100units/ml) SC SCH ×4 (06:36→22:30)
[2019-03-28] MEDS: LEVOTHYROXINE SODIUM 100 MCG TAB PO SCH (06:36)
--- NOTE | 2019-03-28 07:28 | NUR ---
OPENING NOTE Assumed care of patient from [facility] RN, Jenny. Patient resting in bed with eyes closed, even rise and fall of chest noted. No S/S of distress/SOB or pain. Nasal cannula in place, connected to 2L O2. Bed in lowest, locked position with side rails up x2. Fall precautions in place and call light within reach. Will continue to monitor for changes Q1hr and PRN.
[2019-03-28 09:00] VITALS: BP 104/40
--- NOTE | 2019-03-28 09:10 | NUR ---
IV CHANGE Patient refused IV change. Educated patient that IV's should be changed every 3 days, patient states "but it still works". IV flushes well, no S/S of pain/redness or infiltration.
[2019-03-28] MEDS: MAGNESIUM OXIDE 400 MG TAB PO SCH (10:36)
[2019-03-28] MEDS: DOCUSATE SOD 100 MG CAP PO SCH ×2 (10:36→22:31)
[2019-03-28] MEDS: METOPROLOL TARTRATE 25 MG TAB PO SCH ×2 (10:36→22:30)
[2019-03-28] MEDS: ASPirin-EC 81 mg tab PO SCH (10:36)
[2019-03-28] MEDS: LISINOPRIL 10 MG TAB PO SCH (10:37)
[2019-03-28] MEDS: INSULIN LANTUS (GLARGINE) 1 /0.01ml (100units/ml) SC SCH (10:37)
[2019-03-28] MEDS: CLOPIDOGREL BISULFATE 75 MG TAB PO SCH (10:37)
[2019-03-28] MEDS: FAMOTIDINE 20 MG TAB PO SCH (10:37)
[2019-03-28 13:00] VITALS: BP 138/77
--- NOTE | 2019-03-28 14:50 | NUR ---
Mares catheter insertion Patient assessed and determined to be in need of Mares catheter, order obtained from MD. Patient educated on catheter and reason for insertion, all questions answered. Mares catheter 16 gauge chinese inserted with clean sterile technique. Patient tolerated well.
--- NOTE | 2019-03-28 15:03 | NUR ---
URINE Urine specimen collected and sent to lab via bullet.
[2019-03-28] MEDS: HYDROcodone-ACET 5/325MG TAB PO PRN (15:37)
[2019-03-28 16:01] LABS: Urine Bacteria NONE SEEN /hpf (None Seen); Urine Blood Negative /uL (Negative); Urine Specific Gravity 1.013 (1.001-1.035); Urine WBC 2 /hpf (0 - 5)
[2019-03-28 17:00] VITALS: BP 142/64
--- NOTE | 2019-03-28 19:15 | NUR ---
Opening Shift Note Assumed care of patient, awake and alert. No S/S of distress/SOB or pain. Safety measures in place bed in lowest position, side rails x2 up, and call light within reach. Instructed on POC and to call for assist PRN, will continue to monitor for changes Q1hr and PRN.
[2019-03-28] MEDS: MORPHINE SULF INJ 2 MG/ML SYRINGE 1ML IV PRN (20:57)
--- NOTE | 2019-03-28 21:00 | NUR ---
IV Change Educated patient that IV's should be changed every 3 days patient refused IV change. IV flushes well, no S/S of pain/redness or infiltration.
[2019-03-28 22:00] VITALS: BP 125/59
[2019-03-28] MEDS: ATORVASTATIN 20 MG TAB PO SCH (22:32)
[2019-03-28] MEDS: QUEtiapine FUMARATE 25 MG TAB PO SCH (22:33)
[2019-03-29 05:55] VITALS: BP 125/84
[2019-03-29 06:19] LABS: Basophils # (auto) 0.1 uL; Basophils % (auto) 0.6 % (0.0-2.0); Eosinophils # (auto) 0.3 uL; Eosinophils % (auto) 2.6 % (0.0-7.0); Hematocrit 34.4 % (36.0-46.0); Lymphocytes # (auto) 2.6 uL; Lymphocytes % (auto) 22.1 % (10.0-50.0); Mean Corpuscular Hemoglobin 28.2 pg (28.0-32.0); Mean Corpuscular Hgb Conc. 31.9 g/dL (32.0-36.0); Mean Corpuscular Volume 88.2 fL (80.0-100.0); Monocytes % (auto) 8.2 % (0.0-12.0); Neutrophils # (auto) 7.9 uL; Neutrophils % (auto) 66.5 % (37.0-80.0); Platelet Count (auto) 230 10^3/uL (140-450); Red Cell Distribution Width 14.7 % (11.8-14.3); White Blood Cell 11.9 10^3/uL (4.4-10.8)
[2019-03-29 06:28] LABS: Calcium 8.7 mg/dL (8.5-10.1); Potassium 4.6 mmol/L (3.5-5.1)
[2019-03-29 06:30] LABS: BUN/Creatinine Ratio 16.3
[2019-03-29] MEDS: LEVOTHYROXINE SODIUM 100 MCG TAB PO SCH (06:34)
[2019-03-29] MEDS: BACLOFEN 10 MG TAB PO SCH ×3 (06:34→22:34)
[2019-03-29] MEDS: GABAPENTIN 400 MG CAP PO SCH ×3 (06:34→22:35)
[2019-03-29] MEDS: ACCU-CHEK COMFORT CURVE STRIP VI SCH ×4 (06:35→22:36)
[2019-03-29] MEDS: InsuLIN REG 1unit/0.01ml Soln (100units/ml) SC SCH ×4 (06:35→22:35)
[2019-03-29] MEDS: HYDROcodone-ACET 5/325MG TAB PO PRN ×3 (07:39→22:36)
[2019-03-29 09:00] VITALS: BP 107/46
[2019-03-29] MEDS: LISINOPRIL 10 MG TAB PO SCH (10:00)
[2019-03-29] MEDS: METOPROLOL TARTRATE 25 MG TAB PO SCH ×2 (10:00→22:35)
--- NOTE | 2019-03-29 10:00 | NUR ---
Patient unable to receive 1000 medication. Patient undergoing EEG. Will continue to monitor and administer medication when procedure is over.
[2019-03-29 10:11] LABS: Folate (Folic Acid) 10.42 ng/mL (5.38-24)
--- NOTE | 2019-03-29 10:40 | NUR ---
Dr. Garcia at the bedside. Discussed SNF options with the patient. Will place social service consult.
--- NOTE | 2019-03-29 10:55 | NUR ---
EEG COMPLETED AT BEDSIDE. MARILYN BUNCH.
[2019-03-29] MEDS: CLOPIDOGREL BISULFATE 75 MG TAB PO SCH (11:19)
[2019-03-29] MEDS: MAGNESIUM OXIDE 400 MG TAB PO SCH (11:19)
[2019-03-29] MEDS: FAMOTIDINE 20 MG TAB PO SCH (11:19)
[2019-03-29] MEDS: ASPirin-EC 81 mg tab PO SCH (11:19)
[2019-03-29] MEDS: DOCUSATE SOD 100 MG CAP PO SCH ×2 (11:20→22:30)
[2019-03-29] MEDS: INSULIN LANTUS (GLARGINE) 1 /0.01ml (100units/ml) SC SCH (11:20)
[2019-03-29] MEDS ORDERED: BACL10TA PO (12:07)
[2019-03-29] MEDS ORDERED: FAM20T PO (12:07)
[2019-03-29] MEDS ORDERED: ATOR20TA50 PO (12:07)
[2019-03-29] MEDS ORDERED: CLOP75TA28 PO (12:07)
[2019-03-29] MEDS ORDERED: LISI10TA6 PO (12:07)
[2019-03-29 13:00] VITALS: BP 119/48
--- NOTE | 2019-03-29 14:36 | NUR ---
Discharge planning per SS consult, patient has orders for a hospice consult. Michelle Finch seen family for initial; asked me to provide information for hospice vendors to choose from. Vendor list was provided to family.
[2019-03-29] MEDS: APIXABAN 5 MG TAB PO SCH ×2 (15:08→22:34)
[2019-03-29] MEDS: PARoxetine 20 MG TAB PO SCH (15:08)
--- NOTE | 2019-03-29 15:30 | NUR ---
Opening Shift Note: A&Ox4, with periods of mild confusion. Currently on 2LO2 via NC; new order for O2 at home, oxygen is at bedside, pain level 4/10 generalized, and at baseline uses a walker; currently bedrest/working on standing with PT. Bed locked in lowest position, side rails up x2, call light within reach, and bed alarm on for patient safety. IV 22 g left AC IID inserted on 03/21/19. Patient refusing to switch IV locations per protocol. Mares inserted on 03/18/19 for prolonged immobilization. Skin intact. POC discussed and questions answered. Pending SNF transfer per discharge order; social service awaiting authorization from an accepting facility. Will continue to round and reposition prn.
[2019-03-29 17:00] VITALS: BP 138/54
--- NOTE | 2019-03-29 17:14 | NUR ---
Discharge planning per ASS consult, patient has orders to SNF. Referral sent to [facility] and [facility], no female beds at this time. Sent to [facility], acceptance is pending. No Admissions available when I placed a follow up call. [facility] may have a bed on 03.30.19.
[2019-03-29 22:00] VITALS: BP 121/62
[2019-03-29] MEDS: TOLTERODINE TARTRATE 1 MG TAB PO SCH (22:33)
[2019-03-29] MEDS: ATORVASTATIN 20 MG TAB PO SCH (22:34)
[2019-03-29] MEDS: QUEtiapine FUMARATE 25 MG TAB PO SCH (22:35)
[2019-03-30 05:59] VITALS: BP 122/65
[2019-03-30] MEDS: BACLOFEN 10 MG TAB PO SCH ×2 (06:24→14:11)
[2019-03-30] MEDS: GABAPENTIN 400 MG CAP PO SCH ×3 (06:24→14:11)
[2019-03-30] MEDS: LEVOTHYROXINE SODIUM 100 MCG TAB PO SCH (06:24)
[2019-03-30] MEDS: InsuLIN REG 1unit/0.01ml Soln (100units/ml) SC SCH ×3 (06:24→17:32)
[2019-03-30] MEDS: ACCU-CHEK COMFORT CURVE STRIP VI SCH ×3 (06:25→17:00)
[2019-03-30] MEDS: HYDROcodone-ACET 5/325MG TAB PO PRN ×2 (06:25→14:11)
[2019-03-30 08:00] VITALS: BP 111/51
[2019-03-30] MEDS: DOCUSATE SOD 100 MG CAP PO SCH (09:39)
[2019-03-30] MEDS: ASPirin-EC 81 mg tab PO SCH (09:40)
[2019-03-30] MEDS: APIXABAN 5 MG TAB PO SCH (09:41)
[2019-03-30] MEDS: METOPROLOL TARTRATE 25 MG TAB PO SCH (09:42)
[2019-03-30] MEDS: MAGNESIUM OXIDE 400 MG TAB PO SCH (09:43)
[2019-03-30] MEDS: FAMOTIDINE 20 MG TAB PO SCH (09:43)
[2019-03-30] MEDS: CLOPIDOGREL BISULFATE 75 MG TAB PO SCH (09:43)
[2019-03-30] MEDS: PARoxetine 20 MG TAB PO SCH (09:43)
[2019-03-30] MEDS: LISINOPRIL 10 MG TAB PO SCH (09:44)
[2019-03-30 10:00] VITALS: BP 111/51
[2019-03-30] MEDS ORDERED: INSULIN LANTUS (GLARGINE) 1 /0.01ml (100units/ml) SC SCH (10:00)
[2019-03-30] MEDS: TOLTERODINE TARTRATE 1 MG TAB PO SCH (10:32)
[2019-03-30] MEDS ORDERED: GABA-339 PO (11:28)
[2019-03-30 12:00] VITALS: BP 116/62
--- NOTE | 2019-03-30 16:38 | NUR ---
Discharge planning per consult, patient has orders to dc to SNF. Referral sent to [facility]. Placed a follow up call, spoke with Zoey and was advised that they will accept this patient into room [address] Laurent. Transportation was arranged with [facility] [phone] and scheduled pick time is 6pm. Nurse Melissa was advised of dc plan. Obtained auth from [facility] for SNF [id number]. Addendum: 03/30/19 at 1649 by ELISE PAINTER Amended: Links added.
[2019-03-30 17:00] VITALS: BP 150/56
--- NOTE | 2019-03-30 19:55 | NUR ---
Discharge instructions given as ordered. All questions and concerns addressed. Patient verbalized understanding. IV removed with catheter intact, pressure dressing applied, whiting catheter emptied; patient discharge to SNF with whiting. Medication reconciliation form completed and copy given to patient. Home medications held in Pharmacy returned to patient, and needed vaccines given. Telemetry unit returned to ICU. Report previously given by day shift RN to [facility]. [facility] with all personal belongings. No distress noted at time of departure.
== END 2019-03-30 19:55 | DRG 246 ==
LOC: EDBD 10:59 → ER 11:04 → TELE-EAST 11:05
PROVIDERS: ADMIT Nurse Practitioner Acute Care; ATTEND Internal Medicine
PROC: B2111ZZ Fluoroscopy of Multiple Coronary Arteries using Low Osmolar Contrast (ICD-10-PCS; principal; 2019-03-26)
PROC: 027237Z Dilation of Coronary Artery, Three Arteries with Four or More Drug-eluting Intraluminal Devices, Percutaneous Approach (ICD-10-PCS; 2019-03-26)
PROC: 02703DZ Dilation of Coronary Artery, One Artery with Intraluminal Device, Percutaneous Approach (ICD-10-PCS; 2019-03-26)
PROC: 4A023N7 Measurement of Cardiac Sampling and Pressure, Left Heart, Percutaneous Approach (ICD-10-PCS; 2019-03-26)
PROC: B2151ZZ Fluoroscopy of Left Heart using Low Osmolar Contrast (ICD-10-PCS; 2019-03-26)
DX: I25.110 Atherosclerotic heart disease of native coronary artery with unstable angina pectoris (principal); J96.21 Acute and chronic respiratory failure with hypoxia; I50.33 Acute on chronic diastolic (congestive) heart failure; N17.0 Acute kidney failure with tubular necrosis; G93.41 Metabolic encephalopathy; R65.10 Systemic inflammatory response syndrome (SIRS) of non-infectious origin without acute organ dysfunction; I10 Essential (primary) hypertension; E11.42 Type 2 diabetes mellitus with diabetic polyneuropathy; Z79.4 Long term (current) use of insulin; Z86.73 Personal history of transient ischemic attack (TIA), and cerebral infarction without residual deficits; Z86.711 Personal history of pulmonary embolism; F03.90 Unspecified dementia, unspecified severity, without behavioral disturbance, psychotic disturbance, mood disturbance, and anxiety; E66.9 Obesity, unspecified; Z99.81 Dependence on supplemental oxygen; W18.30XA Fall on same level, unspecified, initial encounter; I11.0 Hypertensive heart disease with heart failure; Z88.0 Allergy status to penicillin; E03.9 Hypothyroidism, unspecified; E11.21 Type 2 diabetes mellitus with diabetic nephropathy; E78.5 Hyperlipidemia, unspecified; F32.9 Major depressive disorder, single episode, unspecified; F41.0 Panic disorder [episodic paroxysmal anxiety]; G25.3 Myoclonus; G89.4 Chronic pain syndrome; H91.90 Unspecified hearing loss, unspecified ear; Z79.01 Long term (current) use of anticoagulants; Z79.82 Long term (current) use of aspirin; Z91.81 History of falling; Z87.891 Personal history of nicotine dependence; Z81.8 Family history of other mental and behavioral disorders; Z79.899 Other long term (current) drug therapy; R32 Unspecified urinary incontinence; R29.6 Repeated falls; M79.7 Fibromyalgia
CPT/HCPCS: 36415; 36600; 70450; 70486; 71045; 78452; 80048; 80053; 80061; 81001; 82607; 82746; 82805; 82962; 83036; 83735; 84443; 84484; 85025; 85610; 85730; 86141; 86850; 86900; 86901; 87086; 92920; 92928; 93005; 93017; 93306; 93458; 94761; 95819; 97110; 97116; 97530; G0378; J0153; J1815; J2250; J2405

== ENCOUNTER 2019-08-14 22:55 | Emergency (ER) | payer OTHER, MEDICAID ==
[~2019-08-14] VITALS: Ht 167.6 cm; Wt 95.3 kg
[~2019-08-14 22:55] MED LIST changes: -AMIT25TA9 PO; -ASPI325T4 PO; +ATOR20TA50 PO; -BACL-63 PO; +BACL10TA PO; -BEN10T PO; +CLOP75TA28 PO; +FAMO20TA10 PO; -FURO40TA4 PO; -GAB400C PO; +GABA-339 PO; +INSLANTI SC; +LISI-648 PO; +MAGN400T40 PO; -PANT40T PO; -POTA10SO11 PO; +QUET50TA PO; +SITA100T7 PO; +TOLT2CAP7 PO
[2019-08-14 23:37] LABS: Basophils # (auto) 0 10 ^3/uL (0-0.2); Basophils % (auto) 0.5 % (0.0-2.0); Eosinophils # (auto) 0.3 10 ^3/uL (0-0.8); Eosinophils % (auto) 2.9 % (0.0-7.0); Hematocrit 37.1 % (36.0-46.0); Hemoglobin 11.6 g/dL (12.2-16.2); Lymphocytes # (auto) 3.6 10 ^3/uL (0.4-5.4); Lymphocytes % (auto) 37.7 % (10.0-50.0); Mean Corpuscular Hemoglobin 27.5 pg (28.0-32.0); Mean Corpuscular Hgb Conc. 31.2 g/dL (32.0-36.0); Monocytes # (auto) 0.7 10 ^3/uL (0-1.3); Monocytes % (auto) 7.5 % (0.0-12.0); Neutrophils # (auto) 4.9 10 ^3/uL (1.6-8.6); Neutrophils % (auto) 51.4 % (37.0-80.0); Nucleated Red Blood Cells % 0.1 %; Platelet Count (auto) 207 10^3/uL (140-450); Red Blood Cells 4.21 10^6/uL (4.0-5.20); White Blood Cell 9.6 10^3/uL (4.4-10.8)
[2019-08-14 23:44] LABS: Albumin 3.3 g/dL (3.4-5.0); Calcium 8.9 mg/dL (8.5-10.1); Potassium 4.3 mmol/L (3.5-5.1)
[2019-08-14 23:47] LABS: INR 0.96 (0.9-1.15); Partial Thromboplastin Time 35.6 sec (23.64-32.05)
[2019-08-14 23:48] LABS: Bilirubin, Total 0.2 mg/dL (0.2-1.0)
[2019-08-15 03:00] VITALS: BP 102/45
== END 2019-08-15 04:20 | disposition home or self-care (01) ==
LOC: EDBD 22:55 → ER 22:55
DX: H11.32 Conjunctival hemorrhage, left eye (principal); H02.846 Edema of left eye, unspecified eyelid; E11.9 Type 2 diabetes mellitus without complications; E78.5 Hyperlipidemia, unspecified; R51 Headache; I10 Essential (primary) hypertension; Z90.49 Acquired absence of other specified parts of digestive tract; Z98.51 Tubal ligation status; Z88.0 Allergy status to penicillin
CPT/HCPCS: 36415; 70450; 80053; 85025; 85610; 85730; 93005